=== PATIENT | male | born 1990 | race Caucasian/White ===

== ENCOUNTER 2024-04-29 13:50 | Emergency (ER) | payer SELFPAY ==
--- NOTE | 2024-04-29 14:39 | RAD REPORT ---
EXAMINATION: Ankle Left 3 View CLINICAL INDICATION: Male, 33 years old. L ankle injury COMPARISON: No prior exam. FINDINGS: Fracture dislocation of the right ankle. There is a distal fibular diaphyseal fracture with foreshort ening that is above the level of the syndesmosis. There is approximately two thirds shaft width of maximal displacement. A posterior malleolar fracture is present. The talus is dislocated posteriorly with respect to the distal tibia. Possible avulsion fracture at the medial malleolus. Other: n/a IMPRESSION: Right ankle fracture-dislocation.
[2024-04-29] MEDS ORDERED: KETAMINE HCL IN 0.9 % NACL 50 MG/5 ML SYRINGE IV ONE (15:36)
[2024-04-29] MEDS ORDERED: NA CHLORIDE 0.9% 1,000 ML ONE (15:43)
[2024-04-29] MEDS ORDERED: MORPHINE 4 MG/ML SYR ONE (16:14)
--- NOTE | 2024-04-29 16:18 | EDPHYS ---
Physician Documentation [facility] Name: John Mayen Age: 33 yrs Sex: Male : 1990 Arrival Date: 04/29/2024 Time: 13:50 Bed 4 Private MD: ED Physician Lexa Morin HPI: 04/29 15:15 This 33 yrs old Male presents to ER via Wheelchair with complaints of Ankle ec2 Injury. 15:15 Patient arrives today for right ankle injury. He was skateboarding subsequently landed ec2 wrong and injured his right ankle. No LOC, no head strike. No medical problems. No asthma, no smoking, last p.o. intake was approximately 5 hours ago.. Historical: - Allergies: 14:57 No Known Allergies; aa5 - Home Meds: 14:57 None [Active]; aa5 - PMHx: 14:57 None; aa5 - PSHx: 14:57 None; aa5 - Immunization history:: Adult Immunizations unknown. - Infectious Disease History:: Denies. - Social history:: Smoking status: Patient reports the use of cigarette tobacco products. ROS: 15:15 Constitutional: as per hpi ec2 Exam: 15:15 Constitutional: GEN: NAD Head: atraumatic Eyes: EOMI Ears: External ears are ec2 normal. CV: regular rate LUNGS: no respiratory distress ABD: non-distended SKIN: no evidence of rashes MSK: Right ankle with obvious deformity and intact distal neurovascular status. Vital Signs: 14:57 BP 133 / 80; Pulse 72; Resp 18 S; Temp 97.6(O); Pulse Ox 100% on R/A; Weight 72.57 kg aa5 (R); Height 5 ft. 7 in. (R); Pain 7/10; 15:51 BP 143 / 95; Pulse 77; Resp 16; Pulse Ox 100% ; ss 15:51 ss 16:57 BP 138 / 87; Pulse 86; Resp 16; Pulse Ox 99% on R/A; Pain 5/10; ss 14:57 Body Mass Index 25.06 (72.57 kg, 170.18 cm) aa5 14:57 Pain Scale: Adult aa5 16:57 Pain Scale: Adult ss 15:51 SEE procedural sedation for additional VS and information Procedures: 16:05 Procedural sedation: Pre-procedure assessment: the patient has been NPO 6 hour(s) prior ec2 to arrival, Monitoring during procedure: internet marketing director, continuous pulse oximetry, nurse at bedside at all times, Medications employed: Ketamine, Alternatives to procedural sedation discussed Post-procedure assessment: the patient is mildly sedated, Respiratory status: even and unlabored. 16:06 Splinting: Splint applied to right leg using Orthoglass splint, applied by myself. ec2 tech. post reduction film - reveals improved alignment, Examined by me, post splint application: neurovascular intact, 2+ distal pulses palpable, brisk capillary refill noted, Patient tolerated well. Reduction: of the right ankle, using traction, Immobilized with posterior short leg splint. Patient tolerated well. Post reduction film - reveals improved alignment. MDM: 14:07 Medical Screening Exam initiated ec2 15:15 Data reviewed: vital signs. ED course: Patient arrives today for evaluation of an ankle ec2 injury. Examination remarkable for ankle findings of blood. Ankle x-ray independently reviewed and interpreted by me, shows distal fibula fracture along with ankle dislocation. Will perform procedural sedation to reduce the fracture, dislocation. Differential diagnosis considered include processes such as fracture, dislocation, neurovascular injury.. 16:08 ED course: I performed bedside sedation with improvement in alignment, applied a ec2 splint, post sedation patient is awake and alert and answering questions appropriately. Will give the patient medication for pain. Will have the patient ambulatory with crutches.. 04/29 16:00 Order name: RAD; Complete Time: 16:09 EDOH 04/29 16:02 Order name: Ankle Right 3 View; Complete Time: 16:56 EDOH 04/29 15:10 Order name: IV Start; Complete Time: 15:33 ec2 04/29 15:10 Order name: Conscious Sedation; Complete Time: 15:59 ec2 04/29 16:18 Order name: Crutch Training; Complete Time: 16:19 ec2 Administered Medications: 15:42 Drug: NS 0.9% IV 1000 ml IV at 1000 ml once; to be given as a bolus over 60 minutes ss Route: IV; Rate: 1000 ml; Site: right antecubital; 17:00 Follow up: IV Status: Completed infusion; IV Intake: 1000ml ss 15:46 Drug: Ketamine IVP 1 mg/kg IVP once {Note: 75 mg given as ordered by Dr. Morin.} ss Route: IVP; Site: right antecubital; 15:50 Follow up: Response: No adverse reaction; No adverse reaction, pt is sedated as expectedss 16:18 Drug: morphine IVP or IV 4 mg IVP once over 4 mins Route: IVP; Infused Over: 4 mins; ss Site: right antecubital; 16:19 Follow up: Response: No adverse reaction; RASS: Alert and Calm (0) ss Disposition Summary: 04/29/24 16:17 Discharge Ordered Notes: Location: Home ec2 Condition: Stable ec2 Diagnosis - Displaced fracture of lateral malleolus of right fibula ec2 - Dislocation of right ankle joint ec2 Followup: ec2 - With: Duc Huang MD - When: - Reason: Recheck today's complaints Discharge Instructions: - Discharge Summary Sheet ec2 - Ankle Fracture ec2 Forms: - Medication Reconciliation Form ec2 - Antibiotic Education ec2 - Prescription Opioid Use ec2 - Patient Portal Instructions ec2 - Leadership Thank You Letter ec2 Prescriptions: - acetaminophen-codeine 300-30 mg Oral tablet - take 1 tablet ORAL route every 6 hours; 15 tablet; Refills: 0, Product ec2 Selection Permitted Signatures: Dispatcher [employer] EDShelley Alvarez RN RN aa5 Scarlet Rodney RN RN Lexa Morin MD MD ec2 Corrections: (The following items were deleted from the chart) 16:01 14:07 Ankle Left 3 View+RAD.RAD.BRZ ordered. EDMS EDMS 16:01 14:53 Ankle Left 3 View+RAD.RAD.BRZ reviewed. ec2 EDMS 16:02 15:50 Ankle Left 3 View+RAD.RAD.BRZ ordered. EDMS EDMS
--- NOTE | 2024-04-29 16:18 | ER ---
Nurse's Notes [facility] Name: John Mayen Age: 33 yrs Sex: Male : 1990 Arrival Date: 04/29/2024 Time: 13:50 Bed 4 Private MD: Diagnosis: Displaced fracture of lateral malleolus of right fibula;Dislocation of right ankle joint Presentation: 04/29 14:57 Chief complaint: Patient states: "I didn't do the skateboarding right and I didn't land aa5 on the skateboard". Pt c/o right ankle pain and swelling. Coronavirus screen: At this time, the client does not indicate any symptoms associated with coronavirus-19. Ebola Screen: Patient denies travel to an Ebola-affected area in the 21 days before illness onset. Initial Sepsis Screen: Does the patient meet any 2 criteria? No. Patient's initial sepsis screen is negative. Does the patient have a suspected source of infection? No. Patient's initial sepsis screen is negative. Risk Assessment: Do you want to hurt yourself or someone else? Patient reports no desire to harm self or others. Onset of symptoms was April 29, 2024. 14:57 Acuity: VENITA 3 aa5 14:57 Method Of Arrival: Wheelchair aa5 Historical: - Allergies: 14:57 No Known Allergies; aa5 - Home Meds: 14:57 None [Active]; aa5 - PMHx: 14:57 None; aa5 - PSHx: 14:57 None; aa5 - Immunization history:: Adult Immunizations unknown. - Infectious Disease History:: Denies. - Social history:: Smoking status: Patient reports the use of cigarette tobacco products. Screenin:19 Abuse screen: Denies threats or abuse. Denies injuries from another. Nutritional ss screening: No deficits noted. Tuberculosis screening: Never had TB. Assessment: 15:15 General: Appears uncomfortable, Behavior is calm, cooperative, laughing with ED staff. ss Pain: Complains of pain in right ankle Pain currently is 7 out of 10 on a pain scale. Quality of pain is described as aching, tender, throbbing, Pain began suddenly, Is continuous, Aggravated by repositioning. Neuro: Level of Consciousness is awake, alert, obeys commands, Oriented to person, place, time, situation. Respiratory: Airway is patent Respiratory effort is even, unlabored, Respiratory pattern is regular, symmetrical. GI: Abdomen is non-distended. EENT: Oral mucosa is moist. Musculoskeletal: Circulation, motion, and sensation intact. Range of motion: limited in right ankle Bony deformity noted of right ankle. 15:28 Reassessment: see procedural sedation flow sheet for further information. 16:19 Reassessment: Patient appears in no apparent distress at this time. Patient and/or ss family updated on plan of care and expected duration. Pain level reassessed. Patient is alert, oriented x 3, equal unlabored respirations, skin warm/dry/pink. Pt is awake and alert at this time. Morphine given as administered. RASS 0. Respiratory: Trachea midline Respiratory effort is even, unlabored. 16:57 Reassessment: Patient appears in no apparent distress at this time. Patient and/or ss family updated on plan of care and expected duration. Pain level reassessed. Patient is alert, oriented x 3, equal unlabored respirations, skin warm/dry/pink. Neuro: Level of Consciousness is awake, alert, obeys commands, Oriented to person, place, time, situation. Derm: Skin is pink, warm \\T\\ dry. Vital Signs: 14:57 BP 133 / 80; Pulse 72; Resp 18 S; Temp 97.6(O); Pulse Ox 100% on R/A; Weight 72.57 kg aa5 (R); Height 5 ft. 7 in. (R); Pain 7/10; 15:51 BP 143 / 95; Pulse 77; Resp 16; Pulse Ox 100% ; ss 15:51 ss 16:57 BP 138 / 87; Pulse 86; Resp 16; Pulse Ox 99% on R/A; Pain 5/10; ss 14:57 Body Mass Index 25.06 (72.57 kg, 170.18 cm) aa5 14:57 Pain Scale: Adult aa5 16:57 Pain Scale: Adult ss 15:51 SEE procedural sedation for additional VS and information ED Course: 13:55 Patient arrived in ED. mg5 13:57 Lexa Morin MD is Attending Physician. ec2 13:57 Omar Mark PA is PHCP. cp 14:29 Patient's name was called from ER lobby. No response. aa5 14:59 Triage completed. aa5 15:20 Inserted saline lock: 20 gauge in right antecubital area, using aseptic technique. ss Blood collected. Flushed with 10 mL NS. 15:32 Provided Education on: Conscious Sedation. Client placed on continuous cardiac and ss pulse oximetry monitoring. NIBP monitoring applied. Warm blanket given. Consent for conscious sedation explained by staff, explained by physician, signed by patient. 15:59 Scarlet Rodney, RN is Primary Nurse. ss 16:00 Orthoglass splint: Posterior short lleg splint applied on right leg. Stirrup splint em1 applied to right leg Applied post reduction by a physician. 16:02 Ankle Right 3 View In Process Unspecified. EDMS 16:17 Duc Huang MD is Referral Physician. ec2 16:19 Patient has correct armband on for positive identification. Bed in low position. ss 16:59 No provider procedures requiring assistance completed. IV discontinued, intact, ss bleeding controlled, No redness/swelling at site. Pressure dressing applied. Administered Medications: 15:42 Drug: NS 0.9% IV 1000 ml IV at 1000 ml once; to be given as a bolus over 60 minutes ss Route: IV; Rate: 1000 ml; Site: right antecubital; 17:00 Follow up: IV Status: Completed infusion; IV Intake: 1000ml ss 15:46 Drug: Ketamine IVP 1 mg/kg IVP once {Note: 75 mg given as ordered by Dr. Morin.} Route: IVP; Site: right antecubital; 15:50 Follow up: Response: No adverse reaction; No adverse reaction, pt is sedated as expectedss 16:18 Drug: morphine IVP or IV 4 mg IVP once over 4 mins Route: IVP; Infused Over: 4 mins; ss Site: right antecubital; 16:19 Follow up: Response: No adverse reaction; RASS: Alert and Calm (0) ss Medication: 16:19 VIS not applicable for this client. ss Intake: 17:00 IV: 1000ml; Total: 1000ml. ss Outcome: 16:17 Discharge ordered by . ec2 16:59 Discharged to home via wheelchair, with crutches, with friend, ss 16:59 Condition: good 16:59 Discharge instructions given to patient, friend, Instructed on discharge instructions, follow up and referral plans. medication usage, Demonstrated understanding of instructions, follow-up care, medications, Prescriptions given X 1, 17:00 Patient left the ED. ss Signatures: Dispatcher [employer] EDWilmer Whitley em1 Shelley Szymanski RN RN aa5 Scarlet Rodney RN RN ss Omar Mark PA PA Annabelle Rogers mg5 Lexa Morin MD MD ec2 Corrections: (The following items were deleted from the chart) 14:59 14:57 72.57 kg Reported; Height 5 ft. 7 in. Reported; BMI: 25.0; Pain 01/05, Adult; aa5 aa5 16:01 14:36 In radiology for Ankle Left 3 View+RAD.RAD.BRZ. EDMS EDMS
--- NOTE | 2024-04-29 16:22 | RAD REPORT ---
EXAM: 2 views of the Right ankle HISTORY: Postreduction COMPARISON: Same-day FINDINGS: Postreduction radiographs demonstrating improved alignment of the fracture dislocation of the right a nkle. Ankle has been relocated. There is still approximately one half shaft width of displacement of the distal fibular diaphyseal fracture. Posterior malleolar fracture again noted. IMPRESSION: Improved alignment following closed reduction of the right ankle fracture/dislocation..
[2024-04-29 17:18] VITALS: TEMP 97.6
[2024-04-29 17:24] VITALS: BP 138/87; O2SAT 99
== END 2024-04-29 17:00 | disposition home or self-care (01) ==
LOC: ER 13:50
PROC: 0QSJ35Z Reposition Right Fibula with External Fixation Device, Percutaneous Approach (ICD-10-PCS; principal; 2024-04-29)
DX: S82.61XA Displaced fracture of lateral malleolus of right fibula, initial encounter for closed fracture (principal)
CPT/HCPCS: 96361; 96374; 96375; 99284; J7030